=== PATIENT | male | born 1970 | race Caucasian/White ===

== ENCOUNTER 2024-06-30 08:59 | Emergency (ER) | payer OTHER, SELFPAY ==
[2024-06-30 09:06] VITALS: BP 156/98
--- NOTE | 2024-06-30 09:39 | ED.GENMED ---
History of Present Illness
General
Chief Complaint: Musculo-Skeletal Complaint
Time Seen by Provider: 06/30/24 09:20
History of Present Illness
History of Present Illness:
54-year-old male presents the emergency department for evaluation of right shoulder pain and limited range of motion. Symptoms began upon awakening yesterday. He denies any acute injuries but does note that he had the object several weeks prior
while helping a family member move. He took Aleve this morning without relief. 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
Past History
Past History
ED Past Medical History: HTN
ED Past Surgical History: Orthopedic
Social History
Tobacco: Non-smoker
Alcohol: None
Drug: None
Personal:
Living: with family
Employment: Employed
Family History
Family History: Negative Early CAD, CAD or Sudden
Review of Systems
Review of Systems
Allergies reviewed?: Yes
All Other Systems: ROS reviewed and negative except as documented in HPI and ROS
Phy Exam
Physical Exam
Physical Exam:
GEN: Well appearing, NAD, WDWN
HEENT: Oral mucosa moist, no scleral icterus
Cardiac: Regular rate
Lung: No respiratory distress, no tachypnea
MSK: No gross deformity or injuries. Active range of motion of the right shoulder is limited secondary to pain. Passive abduction is normal however external rotation elicits pain. No obvious joint effusion
Skin: Good color, no pallor or jaundice, no rashes
Neuro: AO x3, moves all extremities freely
Psych: Calm, cooperative
Course
Orders/Labs/Results
Orders:
Orders
06/30/24 09:09
Shoulder, Right 2 Views [CR Shoulder - Right Min 2 View] Urgent
Comment:
Reason For Exam: pain
Vital Signs
Initial and Last Documented VS:
Initial Vital Signs
Temp Pulse Resp BP Pulse Ox
98.8 F 90 16 156/98 98
06/30/24 09:06 06/30/24 09:06 06/30/24 09:06 06/30/24 09:06 06/30/24 09:06
Last Documented Vital Signs
Temp Pulse Resp BP Pulse Ox
98.8 F 90 16 156/98 98
06/30/24 09:06 06/30/24 09:06 06/30/24 09:06 06/30/24 09:06 06/30/24 09:06
MDM/Problems Addressed
MDM/Problems Addressed:
No evidence for acute osseous abnormality on x-ray. Likely pain related to calcific tendinitis and degenerative change. Will start NSAIDs and refer to orthopedics for follow-up
*Critical Care Note
Total Time (30-74mins, 75-104mins- exclusive of procedures): Not Applicable
ED Attending Note
-
Portions of this chart may have been created with voice recognition software.� Occasional wrong word or��sound alike� substitutions may have occurred due to the inherent limitations of voice recognition software.
Discharge Plan
Departure
Patient Disposition: Home (Routine Discharge)
Date of Disposition: 06/30/24
Time of Disposition: 09:39
Patient with high blood pressure during this ER visit?: No
Discharge Problem:
Calcific tendinitis of right shoulder
Instructions: Rotator Cuff Tendinitis Stretching Exercises, Rotator Cuff Tendinitis Strengthening Exercises
Prescriptions:
New
meloxicam 15 mg tablet
15 mg PO DAILY Qty: 14 0RF
No Action
mometasone [Nasonex] 17 GM spray,non-aerosol
17 gm NS DAILY
pantoprazole 40 MG tablet,delayed release (DR/EC)
40 mg PO DAILY Qty: 30 0RF
prednisone 10 MG tablet
10 mg PO .TAPER Qty: 30 0RF
Rx Instructions:
Take 40mg daily x3days, 30mg daily x3days,
20mg daily x3days, 10mg daily x3days.
Referrals:
Eligio Palma MD [Active] - Call in 1-3 days for appt
Frantz Weber MD [Family Provider] -
Interventions
Interventions:
*Risk Screen - Suicide Last Done: 06/30/24 09:06
*General Assessment Last Done: 06/30/24 09:06
*Neglect/Abuse Screening Last Done: 06/30/24 09:06
*Nursing Disposition Last Done: 06/30/24 09:54
ED-Musculoskeletal Assessment Last Done: 06/30/24 09:25
Discharge Date and Time
Discharge Date/Time: 06/30/24 09:54
Print Language: ZAMBIAN
== END 2024-06-30 09:54 | disposition home or self-care (01) ==
LOC: EMR 08:59
PROVIDERS: EMERGENCY PHYSICIAN Emergency Medicine; FAMILY PHYSICIAN Family Medicine
DX: M75.31 Calcific tendinitis of right shoulder (principal); I10 Essential (primary) hypertension
CPT/HCPCS: 99283; 73030